=== PATIENT | male | born 1945 | race Caucasian/White ===

== ENCOUNTER 2021-02-14 19:12 | Emergency (ER) | payer MEDICARE, OTHER ==
[~2021-02-14 19:12] MED LIST: Iopamidol-370 76% 500 ML 1 ML ONE
== END 2021-02-14 22:00 | disposition short-term general hospital (02) ==
LOC: ERS 19:12
DX: U07.1 COVID-19 (principal); I63.9 Cerebral infarction, unspecified; J44.9 Chronic obstructive pulmonary disease, unspecified; Z79.899 Other long term (current) drug therapy
CPT/HCPCS: 70450; 70496; 70498; 71275; 74174; 80053; 82550; 82962; 84484; 85025; 85610; 85730; 93005; 96365; 96374; 99291; 99292; J2997; 36416; Q9967

== ENCOUNTER 2021-05-23 12:48 | Emergency (ER) | payer OTHER, MEDICARE | END 2021-05-23 16:05 | LOC: ERS 12:48 | DX: Z04.3 Encounter for examination and observation following other accident (principal); J44.9 Chronic obstructive pulmonary disease, unspecified; I48.91 Unspecified atrial fibrillation; K21.9 Gastro-esophageal reflux disease without esophagitis; Z86.73 Personal history of transient ischemic attack (TIA), and cerebral infarction without residual deficits; W05.0XXA Fall from non-moving wheelchair, initial encounter | CPT/HCPCS: 70450 ==

== ENCOUNTER 2022-02-07 08:16 | Inpatient (IN) | payer MEDICARE, OTHER ==
[2022-02-07 08:54] LABS: #Eosinphils 0.3 thou/uL (0.0-0.7); #Lymphocytes 1.2 thou/uL (1.20-3.40); #Monocytes 0.4 thou/uL (0.11-0.59); #Neutrophils 3.2 thou/uL (1.40-6.50); %Basophils 0.8 % (0.0-1.0); %Eosinophils 5.1 % (0.0-10.0); %Lymphocytes 23.4 % (21.0-51.0); %Monocytes 7.7 % (0.0-10.0); Hemoglobin 13.4 g/dL (14.0-18.0); Mean Corpuscular HGB CONC 32.3 g/dL (32.0-36.0); Mean Corpuscular Hemoglobin 31.1 pg (27.0-31.0); Mean Corpuscular Volume 96.3 fL (78.0-98.0); Mean Platelet Volume 6.4 fL (7.4-10.4); Platelet Count 198 thou/uL (130-400); RBC Distribution Width 12.7 % (11.5-14.5); Red Blood Cell (RBC) Count 4.32 mill/uL (4.70-6.10)
[2022-02-07 09:08] LABS: INR-International Normal Ratio 1.1; PTT 33.7 sec (22.9-36.1); Prothrombin Time 14.3 sec (12.0-14.7)
[2022-02-07 09:12] LABS: ALT (SGPT) 22 U/L (8-55); AST (SGOT) 22 U/L (5-34); Albumin 3.3 g/dL (3.4-4.8); Alkaline Phosphatase 238 U/L (40-110); Anion Gap 15 mmol/L (10-20); BUN (Urea Nitrogen) 12 mg/dL (8.4-25.7); Bilirubin, Total 0.5 mg/dL (0.2-1.2); Calc. Creatinine Clearance 0 mL/min (70-130); Calcium 8.5 mg/dL (7.8-10.44); Carbon Dioxide 22 mmol/L (23-31); Chloride 102 mmol/L (98-107); Glucose 133 mg/dL (83-110); Potassium 4.1 mmol/L (3.5-5.1); Protein, Total 6.3 g/dL (5.8-8.1); Sodium 135 mmol/L (136-145)
[2022-02-07] MEDS ORDERED: hydrALAZINE 20 MG/ML VIAL SLOW IVP PRN (09:38)
[2022-02-07] MEDS ORDERED: Aspirin Chewable 81 MG TAB ONE (09:40)
[2022-02-07] MEDS ORDERED: Lactated Ringer's 1,000 ML IV SCH (09:45)
[2022-02-07] MEDS ORDERED: Iopamidol-370 76% 500 ML 1 ML ONE (10:03)
[2022-02-07 11:19] LABS: Bilirubin Negative (Negative); Blood, Urine Negative (Negative); Clarity Clear (Clear); Glucose, Urine (Dipstick) Normal (Negative); Ketone, Urine Negative (Negative); Leukocyte Negative Leu/uL (Negative); Nitrite 1+ (Negative); Protein, Urine (Dipstick) 10 mg/dL (Neg-Trace); Squamous Epithelial None Seen HPF (0-3); Urobilinogen Normal mg/dL (Less than 2); WBC/HPF 0-3 HPF (0-3); pH, Urine 7.5 (5.0-9.0)
[2022-02-07 11:22] LABS: Bacteria/HPF 1+ HPF (None Seen)
[2022-02-07 11:23] LABS: Specific Gravity, Urine 1.047 (1.002-1.036)
[2022-02-07 12:03] VITALS: BMI 15.3
[2022-02-07] MEDS ORDERED: Lorazepam 2 MG/ML VIAL SLOW IVP PRN (16:47)
[2022-02-07] MEDS: Atorvastatin Calcium 40 MG TAB PO SCH (20:17)
[2022-02-07] MEDS: levETIRAcetam in NS 500 MG in Premix Bag 1 BAG IVPB SCH (20:17)
[2022-02-08 05:29] LABS: #Basophils 0.1 thou/uL (0.0-0.2); #Eosinphils 0.4 thou/uL (0.0-0.7); #Lymphocytes 1.9 thou/uL (1.20-3.40); #Monocytes 0.8 thou/uL (0.11-0.59); #Neutrophils 3.8 thou/uL (1.40-6.50); %Basophils 0.9 % (0.0-1.0); %Eosinophils 5.7 % (0.0-10.0); %Lymphocytes 27.3 % (21.0-51.0); %Monocytes 11.4 % (0.0-10.0); %Neutrophils 54.7 % (42.0-75.0); Hemoglobin 12.6 g/dL (14.0-18.0); Mean Corpuscular HGB CONC 32.2 g/dL (32.0-36.0); Mean Corpuscular Hemoglobin 30.4 pg (27.0-31.0); Mean Corpuscular Volume 94.4 fL (78.0-98.0); Mean Platelet Volume 6.3 fL (7.4-10.4); Platelet Count 265 thou/uL (130-400); RBC Distribution Width 12.8 % (11.5-14.5); Red Blood Cell (RBC) Count 4.15 mill/uL (4.70-6.10)
[2022-02-08 05:58] LABS: Anion Gap 11 mmol/L (10-20); BUN (Urea Nitrogen) 10 mg/dL (8.4-25.7); Calc. Creatinine Clearance 69 mL/min (70-130); Carbon Dioxide 26 mmol/L (23-31); Cardiac Risk 2.7 (Less than 4.5); Chloride 105 mmol/L (98-107); Cholesterol 118 mg/dl (< 200 Desired); Glucose 87 mg/dL (83-110); HDL Cholesterol 44 mg/dL (>60 Neg Risk); LDL Cholesterol, Calculated 66 mg/dL; Potassium 4.2 mmol/L (3.5-5.1); Sodium 138 mmol/L (136-145); Triglycerides 41 mg/dL (Less than 150)
[2022-02-08] MEDS: levETIRAcetam in NS 500 MG in Premix Bag 1 BAG IVPB SCH ×2 (10:14→21:41)
[2022-02-08] MEDS: Senokot 8.6 MG TAB PO SCH (10:14)
[2022-02-08] MEDS: Aspirin 325 mg Enteric Coated Tablet PO SCH (10:14)
[2022-02-08] MEDS: FLUoxetine HCl 10 MG CAP PO SCH (10:15)
[2022-02-08] MEDS: Famotidine 20 MG TAB PO SCH (10:15)
[2022-02-08] MEDS ORDERED: cefTRIAXone\\ROCEPHIN 1 GM VIAL IM SCH (10:30)
[2022-02-08] MEDS ORDERED: Polyethylene Glycol 3350 17 GM Packet PO SCH (10:30)
[2022-02-08] MEDS ORDERED: Docusate 100 MG CAP PO SCH (10:30)
[2022-02-08] MEDS ORDERED: cefTRIAXone\\ROCEPHIN 1 GM in Sodium Chloride 0.9% 100 ML IVPB SCH (13:00)
[2022-02-08] MEDS: Atorvastatin Calcium 40 MG TAB PO SCH (21:41)
[2022-02-09] MEDS: Aspirin 325 mg Enteric Coated Tablet PO SCH (09:14)
[2022-02-09] MEDS: Polyethylene Glycol 3350 17 GM Packet PO SCH (09:14)
[2022-02-09] MEDS: Senokot 8.6 MG TAB PO SCH (09:14)
[2022-02-09] MEDS: Docusate 100 MG CAP PO SCH (09:15)
[2022-02-09] MEDS: Famotidine 20 MG TAB PO SCH (09:15)
[2022-02-09] MEDS: FLUoxetine HCl 10 MG CAP PO SCH (09:15)
[2022-02-09] MEDS: levETIRAcetam in NS 500 MG in Premix Bag 1 BAG IVPB SCH (09:15)
[2022-02-09] MEDS: Albuterol Sulfate 2.5 mg/3 ml Neb NEB PRN (11:11)
[2022-02-09] MEDS ORDERED: Valproate Sodium 500 MG in Sodium Chloride 0.9% 100 ML IVPB SCH ×2 (11:15→21:00)
[2022-02-09] MEDS: Atorvastatin Calcium 40 MG TAB PO SCH (21:55)
[2022-02-10 07:24] LABS: Anion Gap 10 mmol/L (10-20); BUN (Urea Nitrogen) 19 mg/dL (8.4-25.7); Calc. Creatinine Clearance 73 mL/min (70-130); Calcium 8.7 mg/dL (7.8-10.44); Carbon Dioxide 26 mmol/L (23-31); Chloride 104 mmol/L (98-107); Glucose 80 mg/dL (83-110); Potassium 4.2 mmol/L (3.5-5.1); Sodium 136 mmol/L (136-145)
[2022-02-10 08:56] LABS: Band 3 % (5-11); Eosinophils 7 % (0-10); Hemoglobin 10.3 g/dL (14.0-18.0); Lymphocytes 44 % (21-51); MDiff Complete? YES; Mean Corpuscular HGB CONC 32.7 g/dL (32.0-36.0); Mean Corpuscular Hemoglobin 31.7 pg (27.0-31.0); Mean Platelet Volume 7.7 fL (7.4-10.4); Monocytes 1 % (0-10); Neutrophil 45 % (42-75); Platelet Count 171 thou/uL (130-400); Platelet Morphology Comment Appears Adequate; Polychromasia SLIGHT = 2-3 cells (100X) (0-2/hpf); RBC Distribution Width 12.8 % (11.5-14.5); Red Blood Cell (RBC) Count 3.23 mill/uL (4.70-6.10); White Blood Cell (WBC) Count 3.8 thou/uL (4.8-10.8)
[2022-02-10] MEDS: Polyethylene Glycol 3350 17 GM Packet PO SCH (09:05)
[2022-02-10] MEDS: Senokot 8.6 MG TAB PO SCH (09:05)
[2022-02-10] MEDS: FLUoxetine HCl 10 MG CAP PO SCH (09:05)
[2022-02-10] MEDS: Aspirin 325 mg Enteric Coated Tablet PO SCH (09:05)
[2022-02-10] MEDS: Docusate 100 MG CAP PO SCH (09:05)
[2022-02-10] MEDS: Albuterol Sulfate 2.5 mg/3 ml Neb NEB PRN (10:47)
[2022-02-10] MEDS: Famotidine 20 MG TAB PO SCH (12:02)
[2022-02-10] MEDS: cefTRIAXone\\ROCEPHIN 1 GM in Sodium Chloride 0.9% 100 ML IVPB SCH (12:31)
[2022-02-10] MEDS: Valproic Acid 250 MG CAP PO SCH (21:23)
[2022-02-10] MEDS: Atorvastatin Calcium 40 MG TAB PO SCH (21:23)
[2022-02-11] MEDS: Senokot 8.6 MG TAB PO SCH (08:46)
[2022-02-11] MEDS: Famotidine 20 MG TAB PO SCH (08:47)
[2022-02-11] MEDS: Polyethylene Glycol 3350 17 GM Packet PO SCH (08:47)
[2022-02-11] MEDS: Aspirin 325 mg Enteric Coated Tablet PO SCH (08:47)
[2022-02-11] MEDS: FLUoxetine HCl 10 MG CAP PO SCH (08:47)
[2022-02-11] MEDS: Valproic Acid 250 MG CAP PO SCH ×2 (08:47→21:10)
[2022-02-11] MEDS: Docusate 100 MG CAP PO SCH (08:47)
[2022-02-11] MEDS ORDERED: Bisacodyl 10 MG SUPP PR PRN (11:05)
[2022-02-11] MEDS: cefTRIAXone\\ROCEPHIN 1 GM in Sodium Chloride 0.9% 100 ML IVPB SCH (11:24)
[2022-02-11] MEDS ORDERED: Phenazopyridine HCl 97.5 MG TABLET PO SCH (15:00)
[2022-02-11] MEDS: Phenazopyridine HCl 100 MG TAB PO SCH ×2 (15:14→21:10)
[2022-02-11 19:04] LABS: Bacteria/HPF 4+ HPF (None Seen); Bilirubin Negative (Negative); Blood, Urine Negative (Negative); Clarity Turbid (Clear); Glucose, Urine (Dipstick) Normal (Negative); Ketone, Urine 10 mg/dL (Negative); Leukocyte 75 Leu/uL (Negative); Nitrite 2+ (Negative); Protein, Urine (Dipstick) Negative (Neg-Trace); RBC/HPF None Seen HPF (0-3); Specific Gravity, Urine 1.026 (1.002-1.036); Squamous Epithelial 0-3 HPF (0-3); Urobilinogen Normal mg/dL (Less than 2); pH, Urine 6.5 (5.0-9.0)
[2022-02-11 19:05] LABS: Urine Culture Reflex Yes Yes
[2022-02-11] MEDS: Atorvastatin Calcium 40 MG TAB PO SCH (21:09)
[2022-02-12] MEDS: Senokot 8.6 MG TAB PO SCH (09:59)
[2022-02-12] MEDS: Aspirin 325 mg Enteric Coated Tablet PO SCH (09:59)
[2022-02-12] MEDS: Famotidine 20 MG TAB PO SCH (09:59)
[2022-02-12] MEDS: Docusate 100 MG CAP PO SCH (09:59)
[2022-02-12] MEDS: Valproic Acid 250 MG CAP PO SCH ×2 (10:00→20:56)
[2022-02-12] MEDS: Polyethylene Glycol 3350 17 GM Packet PO SCH (10:01)
[2022-02-12] MEDS: Phenazopyridine HCl 100 MG TAB PO SCH ×3 (10:01→20:57)
[2022-02-12] MEDS: FLUoxetine HCl 10 MG CAP PO SCH (10:27)
[2022-02-12] MEDS: cefTRIAXone\\ROCEPHIN 1 GM in Sodium Chloride 0.9% 100 ML IVPB SCH (12:43)
[2022-02-12] MEDS: Atorvastatin Calcium 40 MG TAB PO SCH (20:56)
[2022-02-13] MEDS: Phenazopyridine HCl 100 MG TAB PO SCH ×3 (08:51→23:13)
[2022-02-13] MEDS: Valproic Acid 250 MG CAP PO SCH ×2 (08:51→23:13)
[2022-02-13] MEDS: Aspirin 325 mg Enteric Coated Tablet PO SCH (08:52)
[2022-02-13] MEDS: Famotidine 20 MG TAB PO SCH (08:52)
[2022-02-13] MEDS: Senokot 8.6 MG TAB PO SCH (08:52)
[2022-02-13] MEDS: Polyethylene Glycol 3350 17 GM Packet PO SCH (08:53)
[2022-02-13] MEDS: FLUoxetine HCl 10 MG CAP PO SCH (08:53)
[2022-02-13] MEDS: Docusate 100 MG CAP PO SCH (08:53)
[2022-02-13] MEDS: Albuterol Sulfate 2.5 mg/3 ml Neb NEB PRN (09:37)
[2022-02-13] MEDS ORDERED: Meropenem 1 GM in Sodium Chloride 0.9% 100 ML IVPB SCH ×3 (10:45→20:00)
[2022-02-13] MEDS: Meropenem 1 GM in Sodium Chloride 0.9% 100 ML IVPB SCH (23:12)
[2022-02-13] MEDS: Atorvastatin Calcium 40 MG TAB PO SCH (23:18)
[2022-02-14] MEDS: Meropenem 1 GM in Sodium Chloride 0.9% 100 ML IVPB SCH ×3 (06:21→21:26)
[2022-02-14] MEDS: Polyethylene Glycol 3350 17 GM Packet PO SCH (10:20)
[2022-02-14] MEDS: Valproic Acid 250 MG CAP PO SCH ×2 (10:22→21:26)
[2022-02-14] MEDS: Aspirin 325 mg Enteric Coated Tablet PO SCH (10:22)
[2022-02-14] MEDS: Docusate 100 MG CAP PO SCH (10:22)
[2022-02-14] MEDS: Phenazopyridine HCl 100 MG TAB PO SCH ×3 (10:23→21:26)
[2022-02-14] MEDS: Senokot 8.6 MG TAB PO SCH (10:23)
[2022-02-14] MEDS: FLUoxetine HCl 10 MG CAP PO SCH (10:23)
[2022-02-14] MEDS: Famotidine 20 MG TAB PO SCH (10:23)
[2022-02-14] MEDS: Albuterol Sulfate 2.5 mg/3 ml Neb NEB PRN (10:42)
[2022-02-14] MEDS ORDERED: Milk Of Magnesia 30 ML UDCUP PO SCH (11:30)
[2022-02-14] MEDS ORDERED: Bisacodyl 10 MG SUPP PR SCH (11:30)
[2022-02-14] MEDS: Atorvastatin Calcium 40 MG TAB PO SCH (21:26)
[2022-02-15] MEDS: Meropenem 1 GM in Sodium Chloride 0.9% 100 ML IVPB SCH (06:12)
[2022-02-15] MEDS: Polyethylene Glycol 3350 17 GM Packet PO SCH (09:25)
[2022-02-15] MEDS: Senokot 8.6 MG TAB PO SCH (09:25)
[2022-02-15] MEDS: Docusate 100 MG CAP PO SCH (09:25)
[2022-02-15] MEDS: Aspirin 325 mg Enteric Coated Tablet PO SCH (09:25)
[2022-02-15] MEDS: Famotidine 20 MG TAB PO SCH (09:26)
[2022-02-15] MEDS: Phenazopyridine HCl 100 MG TAB PO SCH (09:26)
[2022-02-15] MEDS: Valproic Acid 250 MG CAP PO SCH (09:27)
[2022-02-15] MEDS: FLUoxetine HCl 10 MG CAP PO SCH (09:28)
[2022-02-15] MEDS: Albuterol Sulfate 2.5 mg/3 ml Neb NEB PRN (09:39)
[2022-02-15 12:32] VITALS: TEMP 97.3
[2022-02-15 13:15] VITALS: BP 132/69
== END 2022-02-15 14:00 | disposition home health service (06) | DRG 56 ==
LOC: ERS 08:16 → OBSVTOIN 09:38 → ERHOLD 09:38 → NEURO 11:32
PROVIDERS: ADMIT Internal Medicine; ATTEND Family Medicine
DX: I69.398 Other sequelae of cerebral infarction (principal); Z66 Do not resuscitate; E43 Unspecified severe protein-calorie malnutrition; N39.0 Urinary tract infection, site not specified; Z68.1 Body mass index [BMI] 19.9 or less, adult; I69.351 Hemiplegia and hemiparesis following cerebral infarction affecting right dominant side; Z16.24 Resistance to multiple antibiotics; I48.0 Paroxysmal atrial fibrillation; J44.9 Chronic obstructive pulmonary disease, unspecified; K21.9 Gastro-esophageal reflux disease without esophagitis; E78.5 Hyperlipidemia, unspecified; G40.909 Epilepsy, unspecified, not intractable, without status epilepticus; J45.909 Unspecified asthma, uncomplicated; I08.3 Combined rheumatic disorders of mitral, aortic and tricuspid valves; B96.20 Unspecified Escherichia coli [E. coli] as the cause of diseases classified elsewhere; Z88.1 Allergy status to other antibiotic agents; Z88.8 Allergy status to other drugs, medicaments and biological substances; Z88.2 Allergy status to sulfonamides; Z98.890 Other specified postprocedural states; Z93.1 Gastrostomy status; Z79.899 Other long term (current) drug therapy; Z79.82 Long term (current) use of aspirin; Z87.440 Personal history of urinary (tract) infections; I69.320 Aphasia following cerebral infarction; I69.392 Facial weakness following cerebral infarction
CPT/HCPCS: 36415; 51701; 70450; 70496; 70498; 70551; 71045; 80048; 80053; 80061; 81001; 81003; 81015; 83690; 84443; 84484; 85025; 85610; 85730; 87077; 87086; 87186; 93005; 93306; 94640; 94760; 95712; 95819; 95957; 96374; J0696; J1953; J2185; J3490; J7120; J7611; Q9967